=== PATIENT | female | born 1940 | race African-American/Black ===

== ENCOUNTER 2018-12-21 08:10 | Outpatient (CLI) | payer MEDICARE, MEDICAID ==
[~2018-12-21] VITALS: Ht 165.1 cm; Wt 70.8 kg
[2018-12-21] MEDS ORDERED: METOPROLOL TART25 MG ORAL (08:16)
[2018-12-21] MEDS ORDERED: MELOXICAM15 MG PO (08:16)
[2018-12-21] MEDS ORDERED: LIPITOR20 MG ORAL (08:16)
[2018-12-21] MEDS ORDERED: AMLODIPINE BES2.5 MG ORAL (08:16)
[2018-12-21 08:37] LABS: BASOPHILS % (AUTO) 0.8 % (0.0-2.0); EOSINOPHILS % (AUTO) 0.8 % (0.0-3.0); HEMATOCRIT 37.8 % (37.0-47.0); HEMOGLOBIN 11.7 G/DL (12.0-16.0); LYMPHOCYTES % (AUTO) 27.9 % (20.0-45.0); MEAN CORPUSCULAR VOLUME 80 FL (80-99); MONOCYTES % (AUTO) 6.8 % (1.0-10.0); NEUTROPHILS % (AUTO) 63.7 % (45.0-75.0); PLATELET COUNT 222 K/UL (150-450); RED BLOOD COUNT 4.74 M/UL (4.20-5.40); WHITE BLOOD COUNT 5.4 K/UL (4.8-10.8)
[2018-12-21 08:51] LABS: ANION GAP 7 mmol/L (5-15); BLOOD UREA NITROGEN 24 mg/dL (7-18); CALCIUM 9.1 MG/DL (8.5-10.1); CARBON DIOXIDE 29 MMOL/L (21-32); CHLORIDE 112 MMOL/L (98-107); CREATININE 1.2 MG/DL (0.55-1.30); POTASSIUM 3.7 MMOL/L (3.5-5.1); SODIUM 148 MMOL/L (136-145)
--- NOTE | 2018-12-21 13:00 | Pre-op HX & Phy Repo 2 SIG ---
DATE OF ADMISSION: 12/25/2018 PRESURGICAL INTERNAL MEDICINE HISTORY AND PHYSICAL DATE OF EVALUATION: 12/21/2018. REASON FOR EVALUATION: I was asked by Dr. Renan Mayo to see this 78-year-old female, who is going for elective surgery on the right eye. The surgery scheduled for December 25, 2018 at [facility]. The patient has a nuclear sclerotic cataract, right eye. The patient was evaluated. Chart was reviewed. PAST MEDICAL HISTORY/REVIEW OF SYSTEMS: Remarkable for hypertension, degenerative joint disease, hyperlipidemia, and anemia. No history of diabetes. Denies history of heart attack, chest pain, or palpitation. Denies history of stroke or seizures. No history of liver problem or GI bleeding. No history of renal insufficiency. No history of respiratory problem. Denies history of seizures or Parkinson disease. PAST SURGICAL HISTORY: Right total knee replacement last year. FAMILY HISTORY: Both parents of old age. HABITS: Denies history of smoke or alcohol habits. PRESENT MEDICATIONS: Amlodipine 2.5 mg, metoprolol 25 mg, atorvastatin, and lorazepam. ALLERGIES: Not known. PHYSICAL EXAMINATION: GENERAL: Alert, well-developed, well-nourished female, in her 70s, no acute distress. VITAL SIGNS: Blood pressure 152/77, temperature 98.5, heart rate is 66, respirations 20, and O2 saturation 96%. SKIN: Warm and clear right knee scar. No rashes. No lymph node enlargement. No ulceration. HEENT: Head, normocephalic. Ears, clear. No discharge. Eyes, full description per Dr. Renan Mayo. Mouth, clear and moist. No dentures. NECK: Lymph nodes not enlarged. Supple. No palpable mass. Carotid artery +2. No bruits. No jugular vein distention. CHEST: No deformity or asymmetry. LUNGS: Clear to auscultation to percussion. No rales or rhonchi. HEART: Sinus rhythm. Bradycardia. No ectopy. No murmur. ABDOMEN: Soft. No palpable mass. No rebound. EXTREMITIES: Degenerative knee and left shoulder. No edema or varicose veins. No calf tenderness. GENITOURINARY TRACT: No dysuria. No CVA tenderness. NERVOUS SYSTEM: No tremor. No nystagmus. No asymmetry. DIAGNOSTIC DATA: ECG, sinus bradycardia 53 per minute, left ventricular hypertrophy, complete right bundle-branch block, septal IA old, ST-T wave abnormality. LABORATORY DATA: Hemoglobin 11.6, white blood cells 5.4. Potassium 3.7. IMPRESSION: 1. Cataract, right eye. 2. Hypertension. 3. Degenerative joint disease, knee and shoulder. 4. Anemia. 5. Hyperlipidemia. 6. Left ventricular hypertrophy and sinus bradycardia. No septal IA by EKG. PLAN: Cataract extraction with intraocular lens implant, right eye per Dr. Renan Mayo on December 25, 2018. Recommendation to be NPO after midnight, Tuesday. The patient's condition optimized for surgery. Thank you very much, Dr. Mayo, for privilege to participate in presurgical care of this interesting patient. Lyle Ferreira M.D. DR: CHRISTOPHER JOB#: [id number] CC:
--- NOTE | 2018-12-22 17:30 | Cardiology Report ---
APPROVED REPORT EKG Measurement Heart [id number] Sinus bradycardia Incomplete right bundle branch block Voltage criteria for left ventricular hypertrophy Cannot rule out Septal infarct, age undetermined Abnormal ECG
== END 2018-12-21 10:10 | disposition home or self-care (01) ==
LOC: LAB 08:10 → EDSTATUS 12-25 13:30
DX: Z01.818 Encounter for other preprocedural examination (principal); I10 Essential (primary) hypertension; E78.5 Hyperlipidemia, unspecified; M19.90 Unspecified osteoarthritis, unspecified site; D64.9 Anemia, unspecified; Z96.651 Presence of right artificial knee joint; Z79.899 Other long term (current) drug therapy; R00.1 Bradycardia, unspecified; I51.7 Cardiomegaly; I45.10 Unspecified right bundle-branch block; H25.11 Age-related nuclear cataract, right eye
CPT/HCPCS: 36415; 80048; 85025; 93005

== ENCOUNTER 2020-04-08 05:51 | Day surgery (SDC) | payer MEDICARE, MEDICAID ==
[2020-04-07 09:12] LABS: BASOPHILS % (AUTO) 0.8 % (0.0-2.0); EOSINOPHILS % (AUTO) 0.8 % (0.0-3.0); HEMOGLOBIN 12.3 G/DL (12.0-16.0); LYMPHOCYTES % (AUTO) 31.5 % (20.0-45.0); MEAN CORPUSCULAR VOLUME 81 FL (80-99); MONOCYTES % (AUTO) 7.7 % (1.0-10.0); NEUTROPHILS % (AUTO) 59.2 % (45.0-75.0); PLATELET COUNT 232 K/UL (150-450); RED BLOOD COUNT 4.94 M/UL (4.20-5.40); RED CELL DISTRIBUTION WIDTH 15.3 % (11.6-14.8); WHITE BLOOD COUNT 4.5 K/UL (4.8-10.8)
[2020-04-07 09:36] LABS: ANION GAP 4 mmol/L (5-15); BLOOD UREA NITROGEN 21 mg/dL (7-18); CALCIUM 9.2 MG/DL (8.5-10.1); CARBON DIOXIDE 32 MMOL/L (21-32); CHLORIDE 109 MMOL/L (98-107); CREATININE 1.1 MG/DL (0.55-1.30); POTASSIUM 4.1 MMOL/L (3.5-5.1); SODIUM 145 MMOL/L (136-145)
--- NOTE | 2020-04-07 11:54 | Diagnostic Imaging Report ---
Procedure: XRAY Chest 2v Reason for study: Cough. Comparison films: None. FINDINGS: Frontal and lateral views of the chest are obtained. Vascularity is normal. The lung perez are clear bilaterally. Cardiac and mediastinal silhouette are within normal limits. CP angles are sharp. Aorta is mildly tortuous . Degenerative changes of the shoulders noted. IMPRESSION: NO ACUTE CARDIOPULMONARY DISEASE.
--- NOTE | 2020-04-07 12:53 | Opthalmology H&P ---
Ophthalmology H&P H&P Chief Complaint: decreased vision in right eye HPI Vision Affects Ability to: read, manage personal affairs HPI Narrative Blurry vision Exam Visual Acuity: OD: Light Perception OS 20/100 Tension: OD 10 OS 12 Eye Exam: normal OU: external exam, palpebral fissure-width, marginal reflex distance, levator function, corneas, anterior chambers, fundus exam; findings: lens - Dense cat. OD /NS, PSC cat. OS Assessment/Plan Treatment Plan: cataract extraction w/ lens implant Goals of Treatment: improvement of vision, enhance quality of life Attestation Attestation The risks and benefits of the surgery as well as alternative procedures were explained to the patient in detail. Renan Mayo MD Apr 07, 2020 12:53
--- NOTE | 2020-04-07 12:55 | Pre-Procedure Note/Attestation ---
Pre-Procedure Note/Attestation Complete Prior to Procedure Planned Procedure: right Procedure Narrative: Cataract extraction with IOL implant right eye Indications for Procedure Pre-Operative Diagnosis: Posterior subcapsular cataract right eye Attestation I attest that I discussed the nature of the procedure; its benefits; risks and complications; and alternatives (and the risks and benefits of such alternatives ), prior to the procedure, with the patient (or the patient's legal inside outside sales representative). I attest that, if there was a reasonable possibility of needing a blood transfusion, the patient (or the patient's legal inside outside sales representative) was given the [facility] standardized written summary, pursuant to the Masoud Hugo Blood Safety Act ([place] Health and Safety Code # 1645, as amended). I attest that I re-evaluated the patient just prior to the surgery and that there has been no change in the patient's H&P, except as documented below: Renan Mayo MD Apr 07, 2020 12:55
[~2020-04-08] VITALS: Ht 157.5 cm; Wt 78.9 kg
[2020-04-08] VITALS (9 sets, daily range): BP systolic 135–152; BP diastolic 51–76
[~2020-04-08 05:51] MED LIST: AMLODIPINE BES2.5 MG ORAL; IRON325 M1 PO; LIPITOR20 MG ORAL; LOSARTAN POTASS50 MG ORAL; MELOXICAM15 MG PO; METOPROLOL TART25 MG ORAL
[2020-04-08] MEDS: Tropicamide 1% Opth 15ml Soln RIGHT EYE SCH ×3 (06:35→06:56)
[2020-04-08] MEDS: Diclofenac Sod 0.1% Op Soln RIGHT EYE SCH ×3 (06:35→06:56)
[2020-04-08] MEDS: Tobramycin Op Soln 0.3% 5ml RIGHT EYE SCH ×3 (06:36→06:56)
[2020-04-08] MEDS: Phenylephrine 10% Opth Soln 5ml RIGHT EYE SCH ×3 (06:36→06:56)
[2020-04-08] MEDS: Cyclopentolate 1% Opth Sol 2ml RIGHT EYE SCH ×3 (06:36→06:56)
[2020-04-08] MEDS ORDERED: Maxitrol Opth Oint 3.5gm ONE (07:00)
[2020-04-08] MEDS ORDERED: Tetracaine 0.5% Opth 4ml Soln RIGHT EYE ONE (07:00)
[2020-04-08] MEDS ORDERED: prednisoLONE acetate 1% Opth Susp 1ml ONE (07:00)
[2020-04-08] MEDS ORDERED: Pilocarpine 1% Opth 15ml Soln ONE (07:00)
[2020-04-08] MEDS ORDERED: Akten 3.5% 1ml Btl RIGHT EYE ONE (07:00)
[2020-04-08] MEDS ORDERED: Proparacaine 0.5% Opth Soln 15ml RIGHT EYE ONE (07:00)
[2020-04-08] MEDS ORDERED: Carbachol 0.01% Op Soln 1.5ml vial ONE (07:04)
[2020-04-08] MEDS ORDERED: EPINEPHrine 1mg/1ml Amp ONE (07:04)
[2020-04-08] MEDS ORDERED: Lidocaine 4% Amp 5ml ONE (07:04)
[2020-04-08] MEDS ORDERED: Lidocaine 2% MPF 5ml Vial INJ ONE (07:04)
[2020-04-08] MEDS ORDERED: acetaZOLAMIDE 500mg Inj ONE (07:04)
[2020-04-08] MEDS ORDERED: BSS 15ml BTL ONE (07:05)
[2020-04-08] MEDS ORDERED: Bupivacaine 0.75% 30ml vial INJ ONE (07:05)
[2020-04-08] MEDS ORDERED: Povidone-Iodine 5% opth solution ONE (07:05)
[2020-04-08] MEDS ORDERED: BSS 500ml btl ONE (07:05)
[2020-04-08] MEDS ORDERED: Sodium Hyaluronate 10 mg/ml 0.85ml ONE (07:06)
[2020-04-08] MEDS ORDERED: fentaNYL 100 mcg/2 mL IV ONE (07:49)
[2020-04-08] MEDS ORDERED: Midazolam 2mg/2ml Inj ONE (07:49)
[2020-04-08] MEDS ORDERED: NS Irrig 1000ml ONE (08:00)
[2020-04-08] MEDS ORDERED: Sterile Water Irrig 1000ml IRRIG ONE (08:00)
[2020-04-08] MEDS ORDERED: LR 1000ml ONE (08:00)
--- NOTE | 2020-04-08 09:55 | Anethesia Preoperative Eval ---
Anesthesia Pre-op PMH/ROS General Date of Evaluation: Apr 08, 2020 Time of Evaluation: 08:09 Anesthesiologist: sal ASA Score: ASA 3 Mallampati Score Class I : Soft palate, uvula, fauces, pillars visible Class II: Soft palate, uvula, fauces visible Class III: Soft palate, base of uvula visible Class IV: Only hard plate visible Mallampati Classification: Class II Surgeon: ernesto Diagnosis: cataract Surgical Procedure: cataract extraction with IOL Anesthesia History: none Family History: no anesthesia problems Allergies: Coded Allergies: No Known Allergies (Unverified , 12/21/18) Medications: see eMAR Patient NPO?: Yes NPO Date: Apr 08, 2020 NPO Time: 00:01 Past Medical History Cardiovascular: Reports: HTN Pulmonary: Denies: asthma, COPD, REI, other Gastrointestinal/Genitourinary: Reports: GERD; Denies: CRI, ESRD, other Neurologic/Psychiatric: Denies: dementia, CVA, depression/anxiety, TIA, other Endocrine: Reports: DM; Denies: hypothyroidism, steroids, other HEENT: Reports: cataract (R); Denies: cataract (L), glaucoma, [place] (L), [place] (R), other Hematology/Immune: Denies: anemia, DVT, bleeding disorder, other PSxH Narrative: unknown Anesthesia Pre-op Phys. Exam Physician Exam Last Vital Signs Date Time Temp Pulse Resp B/P (MAP) Pulse Ox O2 Delivery O2 Flow Rate FiO2 04/08/20 09:15 98.3 48 18 147/67 98 Room Air Constitutional: NAD Neurologic: CN 2-12 intact Cardiovascular: RRR Respiratory: CTA Gastrointestinal: S/NT/ND Airway Exam Mallampati Classification 2 Mallampati Score: Class II MO: full ROM: full Dentures: no upper, no lower Anesthesia Pre-op A/P Studies Pre-op Studies: EKG - sr Risk Assessment & Plan Assessment: covid neg Plan: mac Status Change Before Surgery: No Pre-Antibiotics Drug: none Hawa Grey CRNA Apr 08, 2020 09:55
--- NOTE | 2020-04-08 10:59 | Immediate Post-Op Evaluation ---
Immediate Post-Op Evalulation Immediate Post-Op Evalulation Procedure: right eye cataract with IOL Date of Evaluation: Apr 08, 2020 Time of Evaluation: 08:43 IV Fluids: 500 Blood Pressure Systolic: 142 Blood Pressure Diastolic: 60 Pulse Rate: 50 Respiratory Rate: 14 O2 Sat by Pulse Oximetry: 99 Temperature (Fahrenheit): 97.1 Nausea: No Vomiting: No Complications none Patient Status: awake, reacts, patent Hydration Status: adequate Drug: none Hawa Grey CRNA Apr 08, 2020 10:59
--- NOTE | 2020-04-08 11:00 | 48 Hour Post Anesthesia Eval ---
Post Anesthesia Evaluation Procedure: right eye cataract with IOL Date of Evaluation: Apr 08, 2020 Time of Evaluation: 10:59 Blood Pressure Systolic: 145 0: 51 Pulse Rate: 54 Respiratory Rate: 14 O2 Sat by Pulse Oximetry: 98 Airway: patent Nausea: No Vomiting: No Hydration Status: adequate Cardiopulmonary Status: stable Mental Status/LOC: patient returned to baseline Follow-up Care/Observations: na Post-Anesthesia Complications: none Follow-up care needed: N/A Hawa Grey CRNA Apr 08, 2020 11:00
--- NOTE | 2020-04-11 09:52 | Brief Operative Note ---
Immediate Post Operative Note Operative Note Chief Complaint: Blurry vision Pre-op Diagnosis: Posterior subcapsular cataract right eye Procedure: Cataract extraction with IOL implant right eye Post-op Diagnosis: Pseudophakia OD Findings: consistent w/pre-op dx studies Surgeon: Renan Mayo MD Anesthesiologist: Hawa Grey CRNA Anesthesia: MAC Specimen: none Complications: none Condition: stable Fluids: LR Estimated Blood Loss: none Drains: none Implant(s) used?: Yes - IOL-OD Renan Mayo MD Apr 11, 2020 09:52
--- NOTE | 2020-04-11 10:03 | Operative Note - PDOC ---
Operative Note Operative Note Date of Operation/Procedure: Apr 08, 2020 Chief Complaint: Blurry vision Pre-op Diagnosis: Posterior subcapsular cataract right eye Procedure: Cataract extraction with IOL implant right eye Post-op Diagnosis: Pseudophakia OD Operative Findings: consistent w/pre-op dx studies Surgeon: Renan Mayo MD Anesthesiologist: Hawa Grey CRNA Anesthesia: MAC Specimen: none Complications: none Condition: stable Fluids: LR Estimated Blood Loss: none Drains: none Implant(s) used?: Yes - IOL-OD Indications for Procedure Posterior subcapsular cataract right eye Description of Procedure This patient has been complaining visually significant cataract in the right eye with the best corrected visual acuity of light perception. The patient complains of difficulties with glare in performing activities of daily living and wants to manage personal affairs with comfort and accuracy and see well enough to move with safety at home and outdoors. The risks, benefits and alternatives of the procedure were discussed with the patient in the office prior to scheduling surgery. All questions from the patient were answered after the surgical procedure was explained in detail. The risks of the procedure as explained to the patient include, but are not limited to, pain, infection, bleeding, loss of vision, retinal detachment, need for further surgery, loss of lens nucleus, double vision, etc. Alternative procedures were discussed which include, to do nothing or seek a second opinion. Informed consent for this procedure was obtained from the patient. The patient was referred to a primary care physician for a cardiopulmonary clearance prior to surgery, after proper evaluation was done patient was properly scheduled for outpatient surgery. The patient was brought to the operating room where the anesthesiologist established I.V. lines and cardiac monitoring leads. Mild intravenous sedation was administered. The patient was then prepared with a 5% solution of povidone -iodine to the conjunctival fornix and lashes, and a 5% solution of povidone- iodine to the lids and periorbital skin. The patient was then draped in the usual sterile fashion. A lid speculum was then placed in the operative eye. A keratome blade was then used to create a biplanar incision into the anterior chamber. Viscoelastics was then instilled into the anterior chamber. A 3-mm single pass clear corneal incision was made just anterior to the vascular arcade of the temporal limbus using a keratome. Anterior capsulorrhexis was created. The nucleus was hydrodissected and hydrodelineated, and was freely movable in the capsular bag. The nucleus was then phacoemulsified using a quadrantic [id number] technique. Following the deep groove formation, the lens was split bimanually and the resultant quadrants and cortical material was removed under vacuum burst -mode phacoemulsification. Peripheral cortex was removed with the irrigation and aspiration handpiece. The capsular bag was expanded with viscoelastic. The intraocular lens was then inspected for right power and size and thought to be satisfactory. The implant was inspected under the microscope and found to be free of defects. The implant was inserted into the cartridge system under viscoelastic and placed in the capsular bag. The trailing haptic was positioned with the cartridge system. Viscoelastics was removed from the anterior chamber using the irrigation and aspiration unit. The corneal wound was then tested for leaks and none were found. The lid speculum were then removed. Sponge and needle counts were correct. An eye patch and shield were placed over the operative eye. The patient was taken to the recovery room in stable condition. There were no complications. The patient tolerated the procedure well. The patient was then transferred to the ambulatory surgery unit in stable and satisfactory condition , was given detailed written instructions and asked to follow up in the office the next day. Renan Mayo MD Apr 11, 2020 10:03
== END 2020-04-08 10:00 | disposition home or self-care (01) ==
LOC: SUR 05:51
DX: H25.041 Posterior subcapsular polar age-related cataract, right eye (principal); I10 Essential (primary) hypertension; K21.9 Gastro-esophageal reflux disease without esophagitis; E11.9 Type 2 diabetes mellitus without complications
CPT/HCPCS: 36415; 66984; 71046; 80048; 85025; 85610; 85730; 93005; 94003; J0171; J1100; J1120; J2250; J3010; J3370; J7120; U0002; V2632; 94150